=== PATIENT | male | born 1975 | race Caucasian/White ===

== ENCOUNTER 2017-10-10 12:20 | Emergency (ER) | payer BC ==
[~2017-10-10] VITALS: Ht 185.4 cm; Wt 109.7 kg
[~2017-10-10 12:20] MED LIST: AMLO5TAB PO; ASPI-1 PO; WALKERFR
[2017-10-10] MEDS ORDERED: ketorolac trometh. 30mg/ml inj. IV ONE (12:45)
[2017-10-10] MEDS ORDERED: morphine 4 MG/ML inj SYRINge IV ONE (12:50)
[2017-10-10] MEDS ORDERED: normal saline 1000ML IV soln IVB ONE (12:50)
[2017-10-10] MEDS ORDERED: ketorolac tromethamine 15mg/ml inj. IV ONE (12:50)
[2017-10-10] MEDS ORDERED: ondansetron/PF 4mg/2ml inj IV ONE (12:50)
[2017-10-10 13:47] LABS: CLARITY,URINE CLOUDY (Clear); COLOR,URINE YELLOW (Yellow); GLUCOSE, URINE NEGATIVE (Neg); KETONES,URINE 15 mg/dl (Neg); LEUKOCYTE ESTERASE ,URINE NEGATIVE (Neg); NITRITES, URINE NEGATIVE (Neg); OCCULT BLOOD,URINE SMALL (Neg); PH,URINE 8.5 (4.8-8.0); PROTEIN,URINE NEGATIVE (Neg); UROBILINOGEN,URINE 0.2 E.U/dL (0.2-1.0)
[2017-10-10 13:51] LABS: UA COLLECTION TYPE CLN CATCH MIDSTREAM
[2017-10-10 13:58] LABS: AMORPHOUS PHOSPHATES 4+; BACTERIA,URINE NONE SEEN /HPF (Neg); MUCUS STRANDS NONE SEEN /LPF (Neg); SQUAMOUS EPITHELIAL CELL,UR NONE SEEN /LPF (FEW); WBC,URINE NONE SEEN /HPF (0-4)
[2017-10-10] MEDS ORDERED: IBUP-1985 PO (14:20)
[2017-10-10] MEDS ORDERED: FLO0.4C PO (14:20)
[2017-10-10 14:34] VITALS: BP 163/86
== END 2017-10-10 14:30 | disposition home or self-care (01) ==
LOC: ER 12:21
DX: N20.0 Calculus of kidney (principal); I10 Essential (primary) hypertension; Z98.890 Other specified postprocedural states; Z79.82 Long term (current) use of aspirin; Z79.899 Other long term (current) drug therapy
CPT/HCPCS: 81001; 96361; 96374; 96375; 99284; J1885; J2270; J2405; J7030